=== PATIENT | male | born 1965 | race Hispanic/Latino ===

== ENCOUNTER 2022-06-22 18:50 | Inpatient (IN) | payer OTHER ==
[~2022-06-22] VITALS: Ht 177.8 cm; Wt 155.8 kg
[~2022-06-22 18:50] MED LIST: ASPI-556 PO
[2022-06-22 20:54] LABS: BASOPHILS % (AUTO) 0.3 % (0.0-5.0); EOSINOPHILS % (AUTO) 0.5 % (0.0-8.0); HEMATOCRIT 43.2 % (42-54); LYMPHOCYTES % (AUTO) 15.8 % (21.0-51.0); MEAN CORPUSCULAR HEMOGLOBIN 31.5 pg (27.0-33.0); MEAN CORPUSCULAR HGB CONC 34.3 g/dL (32.0-36.0); MEAN CORPUSCULAR VOLUME 91.9 fL (79-99); MONOCYTES % (AUTO) 8.6 % (3.0-13.0); NEUTROPHILS % (AUTO) 74.4 % (40.0-77.0); PLATELET COUNT (AUTO) 247 K/uL (130-400); RED CELL DISTRIBUTION WIDTH 11.9 % (11.0-15.5); WHITE BLOOD COUNT (AUTO) 10.2 K/uL (4.8-10.8)
[2022-06-22 21:12] LABS: POTASSIUM 4.3 mmol/L (3.5-5.1)
[2022-06-22 21:22] LABS: ALBUMIN 3.6 g/dL (3.5-5.0); TOTAL PROTEIN, SERUM 7.8 g/dL (6.0-8.3)
[2022-06-22 21:25] LABS: B-TYPE NATRIURETIC PEPTIDE 73 pg/mL (0-100)
[2022-06-22 23:02] LABS: APPEARANCE,URINE CLEAR (CLEAR); BILIRUBIN,URINE NEGATIVE (NEGATIVE); COLOR,URINE YELLOW (YELLOW); GLUCOSE, URINE (UA) NEGATIVE (NEGATIVE); KETONES,URINE NEGATIVE (NEGATIVE); LEUKOCYTE ESTERASE ,URINE NEGATIVE Leu/uL (NEGATIVE); NITRATE,URINE NEGATIVE (NEGATIVE); OCCULT BLOOD,URINE NEGATIVE (NEGATIVE); PH,URINE 6.5 (5.0-8.0); PROTEIN,URINE 30 mg/dL (NEGATIVE); UROBILINOGEN,URINE 0.2 mg/dL (0.2-1.0)
[2022-06-23] MEDS ORDERED: ACETAMINOPHEN 325 MG TAB PO PRN (01:00)
[2022-06-23] MEDS ORDERED: ASPIRIN 81MG CHEW TAB PO ONE (01:00)
[2022-06-23] MEDS ORDERED: ONDANSETRON 4MG TABLET PO PRN (01:00)
[2022-06-23] MEDS ORDERED: NITROGLYCERIN 1GM OINT 1 INCH/1GM TD ONE (01:00)
[2022-06-23] MEDS ORDERED: IOHEXOL 350 MG/ML 100ML INFUS..BTL IV ONE (02:02)
[2022-06-23 02:43] LABS: INR 1.13 (0.85-1.15); PROTHROMBIN TIME 12.2 SEC (9.6-11.6)
[2022-06-23 02:44] LABS: PARTIAL THROMBOPLASTIN TIME 27.6 SEC (26.3-35.5)
[2022-06-23] MEDS ORDERED: HEPARIN 5,000 UNIT VIAL ONE (02:48)
[2022-06-23] MEDS: HEPARIN 25,000 UNITS/250ML D5W 250 ML IV SCH (02:56)
[2022-06-23] MEDS: HEPARIN 5,000 UNIT VIAL IV SCH (03:36)
[2022-06-23 04:59] LABS: BASOPHILS % (AUTO) 0.2 % (0.0-5.0); EOSINOPHILS % (AUTO) 0.7 % (0.0-8.0); HEMATOCRIT 40.4 % (42-54); LYMPHOCYTES % (AUTO) 21.1 % (21.0-51.0); MEAN CORPUSCULAR HEMOGLOBIN 31.3 pg (27.0-33.0); MEAN CORPUSCULAR HGB CONC 33.9 g/dL (32.0-36.0); MEAN CORPUSCULAR VOLUME 92.2 fL (79-99); NEUTROPHILS % (AUTO) 69.4 % (40.0-77.0); PLATELET COUNT (AUTO) 245 K/uL (130-400); RED BLOOD CELL COUNT(AUTO) 4.38 MIL/uL (4.50-6.20); WHITE BLOOD COUNT (AUTO) 10.8 K/uL (4.8-10.8)
[2022-06-23 05:08] LABS: CREATININE 0.9 mg/dL (0.5-1.5)
[2022-06-23] MEDS ORDERED: LISI20TA24 PO (05:24)
[2022-06-23] MEDS ORDERED: 0.9% NACL 250ML 250 ML IV SCH (05:30)
[2022-06-23 05:32] LABS: HEMOGLOBIN A1C 5.5 % (4.0-6.0)
[2022-06-23 05:41] VITALS: BP 123/77
[2022-06-23 08:40] VITALS: BP 124/70
[2022-06-23 08:42] LABS: INR 1.13 (0.85-1.15); PROTHROMBIN TIME 12.2 SEC (9.6-11.6)
[2022-06-23] MEDS: FUROSEMIDE 40MG VIAL IV SCH (08:52)
[2022-06-23] MEDS: PANTOPRAZOLE 40 MG/VIAL IVP SCH (08:53)
[2022-06-23] MEDS: ASPIRIN 81 MG EC TAB PO SCH (08:53)
[2022-06-23] MEDS ORDERED: ENOXAPARIN SODIUM 40 MG/0.4 ML SYRINGE SQ SCH (09:00)
[2022-06-23 09:11] LABS: PARTIAL THROMBOPLASTIN TIME > 139.0 SEC (26.3-35.5)
[2022-06-23 12:40] VITALS: BP 118/72
[2022-06-23 16:30] VITALS: BP 113/64
[2022-06-23 20:30] VITALS: BP 115/77
[2022-06-23 23:58] VITALS: BP 126/77
[2022-06-24] MEDS: HEPARIN 5,000 UNIT VIAL IV SCH ×3 (02:01→21:01)
[2022-06-24] MEDS: HEPARIN 25,000 UNITS/250ML D5W 250 ML IV SCH (03:55)
[2022-06-24 04:41] VITALS: BP 117/69
[2022-06-24 06:52] VITALS: BP 117/76
[2022-06-24] MEDS: ASPIRIN 81 MG EC TAB PO SCH (08:26)
[2022-06-24] MEDS: PANTOPRAZOLE 40 MG/VIAL IVP SCH (08:26)
[2022-06-24] MEDS: FUROSEMIDE 40MG VIAL IV SCH (08:26)
[2022-06-24] MEDS ORDERED: FOLIC ACID 1 MG TABLET PO SCH (09:00)
[2022-06-24] MEDS ORDERED: CYANOCOBALAMIN (VITAMIN B-12) 1,000 MCG TABLET PO SCH (09:00)
[2022-06-24 11:30] VITALS: BP 121/71
[2022-06-24 14:43] LABS: INR 1.06 (0.85-1.15); PROTHROMBIN TIME 11.5 SEC (9.6-11.6)
[2022-06-24 14:44] LABS: PARTIAL THROMBOPLASTIN TIME 38.7 SEC (26.3-35.5)
[2022-06-24 15:30] VITALS: BP 116/73
[2022-06-24 20:00] VITALS: BP 110/83
[2022-06-24 20:36] LABS: INR 1.08 (0.85-1.15); PROTHROMBIN TIME 11.7 SEC (9.6-11.6)
[2022-06-24 20:37] LABS: PARTIAL THROMBOPLASTIN TIME 32.3 SEC (26.3-35.5)
[2022-06-25] VITALS: BP 117/80
[2022-06-25 02:15] LABS: HEMATOCRIT 42.7 % (42-54); MEAN CORPUSCULAR HGB CONC 32.8 g/dL (32.0-36.0); MEAN CORPUSCULAR VOLUME 94.7 fL (79-99); RED BLOOD CELL COUNT(AUTO) 4.51 MIL/uL (4.50-6.20); RED CELL DISTRIBUTION WIDTH 12.3 % (11.0-15.5); WHITE BLOOD COUNT (AUTO) 9.4 K/uL (4.8-10.8)
[2022-06-25 02:26] LABS: CREATININE 1.3 mg/dL (0.5-1.5); MAGNESIUM 2.1 mg/dL (1.80-2.40); POTASSIUM 3.7 mmol/L (3.5-5.1)
[2022-06-25 04:00] VITALS: BP 122/79
[2022-06-25 07:15] VITALS: BP 132/74
== END 2022-06-25 10:05 | disposition short-term general hospital (02) | DRG 299 ==
LOC: EDH 18:50 → EDHIP 06-23 00:39 → 2AH 06-23 05:15 → 4AH 06-24 09:00
PROVIDERS: ADMIT Internal Medicine Infectious Disease; ATTEND Internal Medicine Infectious Disease
DX: I82.4Z1 Acute embolism and thrombosis of unspecified deep veins of right distal lower extremity (principal); I26.99 Other pulmonary embolism without acute cor pulmonale; Z68.43 Body mass index [BMI] 50.0-59.9, adult; I24.8 Other forms of acute ischemic heart disease; I10 Essential (primary) hypertension; E66.01 Morbid (severe) obesity due to excess calories
CPT/HCPCS: 36415; 71045; 71275; 80048; 80053; 81003; 83036; 83735; 83880; 84484; 85025; 85027; 85610; 85730; 93005; 93306; 93970; 99291; C9113; G0378; J1644; J1940; Q9967